=== PATIENT | male | born 1950 | race Caucasian/White ===

== ENCOUNTER 2023-04-16 21:52 | Emergency (ER) | payer OTHER ==
[2023-04-16] MEDS ORDERED: SODIUM CHLORIDE 1,000 ML IV STA (23:09)
[2023-04-16 23:23] LABS: HEMATOCRIT 37.9 % (35.4-49); HEMOGLOBIN 12.6 G/dL (11.7-16.9); MCH 31.2 pg (25.7-33.7); MCHC 33.2 g/dl (32.0-35.9); MEAN CELL VOLUME 93.8 fl (80-96); PLATELET COUNT 223.2 10^3/uL (134-434); RBC 4.04 10^6/uL (4.00-5.60); RDW 13.5 % (11.9-15.9); WHITE BLOOD COUNT 12.5 10^3/uL (4.0-10.8)
[2023-04-16 23:34] LABS: PLATELET ESTIMATE ADEQUATE
[2023-04-16 23:39] LABS: ALBUMIN 4.1 g/dl (3.4-5.0); BLOOD UREA NITROGEN 23.4 mg/dl (7-18); CALCIUM 9.2 mg/dl (8.5-10.1); CREATININE 1.1 mg/dl (0.6-1.3); SGOT/AST 18.8 U/L (15-37); SGPT/ALT 23.3 U/L (7-52); TOT PROT 6.9 g/dl (6.4-8.2)
[2023-04-17 00:29] LABS: BILIRUBIN,TOTAL 0.6 mg/dL (0.2-1)
[2023-04-17] MEDS ORDERED: PIPERACILLIN/TAZOB 4.5 GM 4.5 GM in DEXTROSE 5%-WATER 100 ML IVPB ONE (01:33)
[2023-04-17] MEDS ORDERED: PIPERACILLIN/TAZOBACTAM 4.5 GM VIAL IVPB ONE ×2 (01:33→09:07)
[2023-04-17] MEDS ORDERED: SODIUM CHLORIDE 1,000 ML IV STA (01:59)
[2023-04-17] MEDS ORDERED: ACETAMINOPHEN 1000 MG/100 ML BAG IVPB ONE (01:59)
[2023-04-17] MEDS ORDERED: ACETAMINOPHEN INJECTION 100 ML IVPB ONE (02:02)
[2023-04-17] MEDS: DEXTROSE 5%-0.45% SALINE 1,000 ML IV SCH (03:53)
[2023-04-17] MEDS ORDERED: PIPERACILLIN/TAZOB 4.5 GM 4.5 GM in DEXTROSE 5%-WATER 100 ML IVPB SCH (09:00)
[2023-04-17] MEDS: PIPERACILLIN/TAZOB 4.5 GM 4.5 GM in DEXTROSE 5%-WATER 100 ML IVPB SCH ×3 (09:16→21:02)
[2023-04-17 09:44] LABS: BLOOD UREA NITROGEN 19.9 mg/dl (7-18); CALCIUM 8.3 mg/dl (8.5-10.1); POTASSIUM 4.3 mmol/L (3.5-5.1)
[2023-04-17 12:53] VITALS: RESP 18
[2023-04-17 13:36] LABS: BASO % 1.1 % (0-2.0); EOS % 0.7 % (0-4.5); HEMATOCRIT 33.4 % (35.4-49); HEMOGLOBIN 11.1 GM/dL (11.7-16.9); LYMPH % 12.8 % (8-40); MCH 30.8 pg (25.7-33.7); MCHC 33.2 g/dl (32.0-35.9); MEAN PLT VOLUME 9.2 fl (7.5-11.1); MONO % 7.9 % (3.8-10.2); NEUT % 77.5 % (42.8-82.8); PLATELET COUNT 206 10^3/uL (134-434); RBC 3.59 M/mm3 (4.00-5.60); RDW 13.7 % (11.9-15.9); WHITE BLOOD COUNT 8.9 K/mm3 (4.0-10.0)
[2023-04-18] MEDS: PIPERACILLIN/TAZOB 4.5 GM 4.5 GM in DEXTROSE 5%-WATER 100 ML IVPB SCH ×2 (02:40→19:50)
[2023-04-18] MEDS: DEXTROSE 5%-0.45% SALINE 1,000 ML IV SCH (02:41)
[2023-04-18] MEDS: ACETAMINOPHEN 1000 MG/100 ML BAG IVPB PRN (02:46)
[2023-04-19] MEDS: ACETAMINOPHEN 1000 MG/100 ML BAG IVPB PRN (02:07)
[2023-04-19] MEDS: PIPERACILLIN/TAZOB 4.5 GM 4.5 GM in DEXTROSE 5%-WATER 100 ML IVPB SCH ×2 (04:00→11:23)
[2023-04-19] MEDS: DEXTROSE 5%-0.45% SALINE 1,000 ML IV SCH (06:42)
[2023-04-19 09:50] VITALS: BP 131/66; PULSE 70; TEMP 98.4
[2023-04-19 13:46] VITALS: BMI 75.1
== END 2023-04-19 12:57 | disposition home or self-care (01) ==
LOC: FER 21:52 → FM/S 04-17 03:15
PROVIDERS: ADMIT Internal Medicine
PROC: 3E033NZ Introduction of Analgesics, Hypnotics, Sedatives into Peripheral Vein, Percutaneous Approach (ICD-10-PCS; principal; 2023-04-17)
PROC: 3E03329 Introduction of Other Anti-infective into Peripheral Vein, Percutaneous Approach (ICD-10-PCS; 2023-04-17)
PROC: 3E0337Z Introduction of Electrolytic and Water Balance Substance into Peripheral Vein, Percutaneous Approach (ICD-10-PCS; 2023-04-17)
DX: K35.80 Unspecified acute appendicitis (principal); I10 Essential (primary) hypertension; E11.9 Type 2 diabetes mellitus without complications; K57.90 Diverticulosis of intestine, part unspecified, without perforation or abscess without bleeding; E66.01 Morbid (severe) obesity due to excess calories; Z68.45 Body mass index [BMI] 70 or greater, adult; R80.9 Proteinuria, unspecified; Z88.2 Allergy status to sulfonamides
CPT/HCPCS: 0241U-QW; 36415; 71045-TC-FY; 74177-TC; 80048; 80053; 81003; 83690; 85025; 85027; 86850; 86900; 86901; 93005; 96361; 96365; 96366; 96375; 96376; 99285-25; G0378; Q9967

== ENCOUNTER 2023-05-27 04:53 | Day surgery (SDC) | payer OTHER ==
[2023-05-23 09:58] VITALS: BMI 33.5
[~2023-05-27 04:53] MED LIST: BUPIVACAINE HCL/PF 0.25% (2.5MG/ML) 10 ML VIAL IJ ONE
[2023-05-27] MEDS ORDERED: BUPIVACAINE HCL/PF 0.25% (2.5MG/ML) 10 ML VIAL ONE (07:11)
[2023-05-27] MEDS ORDERED: FENTANYL CITRATE/PF 50 MCG/ML VIAL ONE ×2 (07:53→08:25)
[2023-05-27] MEDS ORDERED: MIDAZOLAM HCL 2 MG/2 ML SINGLE DOSE VIAL ONE (07:53)
[2023-05-27] MEDS ORDERED: ONDANSETRON 4 MG/2 ML VIAL ONE (08:01)
[2023-05-27] MEDS ORDERED: KETOROLAC TROMETHAMINE 30 MG/1 ML VIAL ONE (08:01)
[2023-05-27] MEDS ORDERED: LIDOCAINE HCL/PF 2% SDV 5ML VIAL ONE (08:01)
[2023-05-27] MEDS ORDERED: DEXAMETHASONE SOD PHOSPHATE 4 MG/1 ML VIAL ONE (08:01)
[2023-05-27] MEDS ORDERED: ROCURONIUM BROMIDE 50 MG/5 ML SYRINGE ONE (08:01)
[2023-05-27] MEDS ORDERED: ceFAZolin SODIUM 1 GM VIAL ONE (08:01)
[2023-05-27] MEDS ORDERED: SEVOFLURANE 250 ML BTL ONE (08:02)
[2023-05-27] MEDS ORDERED: PROPOFOL 40 ML ONE (08:02)
[2023-05-27] MEDS ORDERED: CEFOXITIN SODIUM 2 GM IVPB ONE (08:20)
[2023-05-27] MEDS ORDERED: cefOXitin SODIUM 2 GM VIAL (RESTRICTED TO ID) IVPB ONE (08:24)
[2023-05-27] MEDS ORDERED: SUGAMMADEX SODIUM 200 MG/2 ML VIAL ONE (08:25)
[2023-05-27] MEDS ORDERED: HEPARIN NA (PORCINE) 5,000 UNITS/ML 1ML VIAL ONE (08:25)
[2023-05-27] MEDS ORDERED: HEPARIN NA (PORCINE) 5,000 UNITS/ML 1ML VIAL SQ ONE (08:29)
[2023-05-27] MEDS ORDERED: oxyCODONE HCL 5 MG TABLET PO PRN ×2 (09:28)
[2023-05-27] MEDS ORDERED: PROMETHAZINE HCL 25 MG/1 ML VIAL IVPB PRN (09:28)
[2023-05-27] MEDS ORDERED: ONDANSETRON 4 MG/2 ML VIAL IVPUSH PRN (09:28)
[2023-05-27] MEDS ORDERED: ACETAMINOPHEN 1000 MG/100 ML BAG IVPB PRN (09:29)
[2023-05-27] MEDS ORDERED: LACTATED RINGERS SOLUTION 1,000 ML IV SCH (09:30)
[2023-05-27 10:21] VITALS: RESP 16; TEMP 97.8
[2023-05-27 11:04] VITALS: BP 114/59; PULSE 68
== END 2023-05-27 11:30 | disposition home or self-care (01) ==
LOC: JASU-SURG 04:53
PROVIDERS: ATTEND Surgery
PROC: 0DTJ4ZZ Resection of Appendix, Percutaneous Endoscopic Approach (ICD-10-PCS; principal; 2023-05-27 08:00)
DX: K36 Other appendicitis (principal)
CPT/HCPCS: 82962; 88304-TC; 94760; J1644